=== PATIENT | female | born 1965 | race Caucasian/White ===

== ENCOUNTER 2017-01-21 12:23 | Emergency (ER) | payer OTHER ==
[~2017-01-21] VITALS: Ht 157.5 cm; Wt 67.0 kg
[~2017-01-21 12:23] MED LIST: ALPR-475 PO; ARIP10TA33 PO; ASPI-496 PO; GABA300C10 PO; LITH600C PO; METO25TA35 PO; METO25TA91 PO; VENL150C PO; VENL75CA PO
[2017-01-21] MEDS ORDERED: METO25TA2 PO (12:32)
[2017-01-21] MEDS ORDERED: LORazepam 2 MG/ML, 1ML ONE (12:45)
[2017-01-21] MEDS ORDERED: SODIUM CHLORIDE FLUSH 10ML SYR IVF ONE (13:00)
[2017-01-21] MEDS ORDERED: LORazepam 2 MG/ML, 1ML IVPush ONE (13:00)
[2017-01-21 13:40] LABS: HEMATOCRIT 38.4 % (34.6-47.8); HEMOGLOBIN 12.7 g/dL (11.7-16.4); WHITE BLOOD COUNT 9.3 x10^3/uL (3.4-10)
[2017-01-21 13:51] LABS: ASPARTATE AMINO TRANSFERASE 13 U/L (15-37); BLOOD UREA NITROGEN 12 mg/dL (7-18)
[2017-01-21 13:57] LABS: IS PT STATUS REG ER OR PRE ER? YES
[2017-01-21] MEDS ORDERED: OMNIPAQUE 350 MG/ML, 100ML BOTTLE ONE (14:42)
[2017-01-21] MEDS ORDERED: METOPROLOL SUCCINATE 25 MG TAB.ER.24H PO ONE (16:00)
[2017-01-21 16:30] VITALS: BP 128/110
== END 2017-01-21 16:43 | disposition home or self-care (01) ==
LOC: ED 12:48
DX: R00.0 Tachycardia, unspecified (principal); F32.9 Major depressive disorder, single episode, unspecified; F41.9 Anxiety disorder, unspecified; I10 Essential (primary) hypertension
CPT/HCPCS: 36415; 71010; 71275; 80053; 83605; 83880; 84436; 84443; 84484; 85025; 85610; 85730; 87040; 93005; 93971; 96374; 99285; J2060; Q9967

== ENCOUNTER → 2018-03-26 | Outpatient (CLI) | payer OTHER ==
[~2018-03-26] MED LIST changes: +METO25TA2 PO
== END | disposition home or self-care (01) ==
LOC: CFH 12:28
PROVIDERS: ATTEND Family Medicine
DX: J34.2 Deviated nasal septum (principal); J01.10 Acute frontal sinusitis, unspecified; J33.8 Other polyp of sinus
CPT/HCPCS: 70450

== ENCOUNTER 2018-05-25 12:09 | Emergency (ER) | payer BC ==
[~2018-05-25] VITALS: Ht 157.5 cm; Wt 66.3 kg
--- NOTE | 2018-05-25 12:22 | NUR ---
MD TO BEDSIDE FOR ASSESSMENT
[2018-05-25] MEDS ORDERED: SODIUM CHLORIDE FLUSH 10ML SYR IVF ONE (12:30)
[2018-05-25] MEDS ORDERED: KETOROLAC 30 MG/1 ML IVPush ONE (12:30)
[2018-05-25] MEDS ORDERED: KETOROLAC 30 MG/1 ML ONE (12:33)
[2018-05-25] MEDS ORDERED: PROMETHAZINE 25 MG/ML, 1ML ONE (12:39)
--- NOTE | 2018-05-25 12:45 | NUR ---
PT MAKAYLA, UPDATED, PT MEDICATED PER MAR
--- NOTE | 2018-05-25 12:53 | NUR ---
LAB AT BEDSIDE FOR COLLECTION
[2018-05-25 12:57] LABS: BASOPHILS # (AUTO) 0.02 x10^3/uL (0-0.1); BASOPHILS % (AUTO) 0 % (0-1); EOSINOPHILS # (AUTO) 0.07 x10^3/uL (0-0.4); EOSINOPHILS % (AUTO) 1 % (1-7); LYMPHOCYTES # (AUTO) 1.93 x10^3/uL (1-3.4); LYMPHOCYTES % (AUTO) 23 % (22-44); MD NO; MEAN CORPUSCULAR HEMOGLOBIN 27.7 pg (27.0-34.8); MEAN CORPUSCULAR HGB CONC 34.3 g/dL (32.4-35.8); MEAN CORPUSCULAR VOLUME 80.9 fL (80-100); MEAN PLATELET VOLUME 8.4 fL (7.4-10.4); MONOCYTES # (AUTO) 0.81 x10^3/uL (0.2-0.8); MONOCYTES % (AUTO) 10 % (2-9); NEUTROPHILS # (AUTO) 5.73 x10^3/uL (1.8-6.8); NEUTROPHILS % (AUTO) 67 % (42-75); PLATELET COUNT 259 x10^3/uL (130-400); RED BLOOD COUNT 5.16 x10^6/uL (3.82-5.3); RED CELL DISTRIBUTION WIDTH 14.2 % (9.6-15.2)
[2018-05-25] MEDS ORDERED: PROMETHAZINE 25 MG/ML, 1ML IM ONE (13:00)
[2018-05-25 13:09] LABS: ALANINE AMINOTRANSFERASE 19 U/L (12-78); ALBUMIN 4.3 g/dL (3.4-5.0); ANION GAP 9 mmol/L (5-15); CALCIUM 9.9 mg/dL (8.5-10.1); CHLORIDE 109 mmol/L (98-107)
[2018-05-25 13:14] LABS: ALKALINE PHOSPHATASE 170 U/L (45-117); BILIRUBIN,TOTAL 0.7 mg/dL (0.2-1.0); CREATININE 0.93 mg/dL (0.55-1.02); T4 (THYROXINE) 9.8 mcg/dL (4.8-13.9); TOTAL PROTEIN 8.2 g/dL (6.4-8.2); TROPONIN I < 0.015 ng/mL (0.000-0.045)
[2018-05-25] MEDS ORDERED: ACETAMINOPHEN 500 MG TABLET ONE (13:25)
--- NOTE | 2018-05-25 13:28 | NUR ---
PT REPORTING SEVERE HO PAIN, MD UPDATED. ORDERS RECEIVED, PT MEDICATED. PT ALSO GIVEN COOL CLOTH. WILL CONTINUE TO MONITOR. ALL RESULTS BACK AT THSI TIME, CHART UP FOR RECHECK
[2018-05-25] MEDS ORDERED: ACETAMINOPHEN 325 MG TABLET PO ONE (13:30)
[2018-05-25] MEDS ORDERED: ACETAMINOPHEN 500 MG TABLET PO ONE (13:30)
[2018-05-25] MEDS ORDERED: HYDROmorphone 1 MG/ML, 1ML VIAL ONE (14:29)
[2018-05-25] MEDS ORDERED: HYDROmorphone 2 MG/ML, 1ML IVPush PRN (14:30)
--- NOTE | 2018-05-25 14:35 | NUR ---
PT MEDICATED FOR PAIN, VSS. WILL CONTINUE TO MONITOR
--- NOTE | 2018-05-25 15:15 | NUR ---
PT STILL REPORTING HO PAIN EVEN AFTER MEDS GIVEN, UPDATED, AWAITING FURTHER ORDERS
[2018-05-25] MEDS ORDERED: LORazepam 2 MG/ML, 1ML ONE (15:40)
[2018-05-25] MEDS ORDERED: METOCLOPRAMIDE 5 MG/ML, 2ML ONE (15:40)
--- NOTE | 2018-05-25 15:46 | NUR ---
TASK RN: PT MED NOTED FOR CONTINUED NAUSEA AND HO
[2018-05-25] MEDS ORDERED: METOCLOPRAMIDE 5 MG/ML, 2ML IVPush ONE (16:00)
[2018-05-25] MEDS ORDERED: LORazepam 2 MG/ML, 1ML IVPush ONE (16:00)
[2018-05-25 16:30] VITALS: BP 105/60
--- NOTE | 2018-05-25 16:36 | NUR ---
RECHECKED PT, STATES HO HAS DECREASED AND NAUSEA IS UNDER CONTROL. UPDATED, PT TO BE DCd. AWAITING PAPERS AT THIS TIME
== END 2018-05-25 16:55 | disposition home or self-care (01) ==
LOC: ED 15:54
DX: I48.0 Paroxysmal atrial fibrillation (principal); G43.909 Migraine, unspecified, not intractable, without status migrainosus; Z88.8 Allergy status to other drugs, medicaments and biological substances; I10 Essential (primary) hypertension
CPT/HCPCS: 36415; 80053; 83880; 84436; 84443; 84484; 85025; 93005; 96372; 96374; 96375; 99284; J1170; J1885; J2060; J2550; J2765